=== PATIENT | male | born 1995 | race American Indian/Alaskan Native ===

== ENCOUNTER 2021-06-19 23:49 | Observation (INO) | payer MEDICAID ==
[2021-06-20] MEDS ORDERED: ASPIRIN 325 MG TAB PO ONE (02:39)
[2021-06-20] MEDS ORDERED: FAMOTIDINE 20 MG TAB PO ONE (02:39)
--- NOTE | 2021-06-20 02:41 | Event Note ---
ED Screening Note Date of service: 06/20/21 Time: 02:40 ED Screening Note: Patient is a 25-year-old -[place] male with a history of morbid obesity and GERD who presents to the ED with complaint of acute onset persistent intermittent substernal chest pain for the last 1 week, worse in the last 2 days. Patient states that the pain radiates to the mid posterior thoracic area. Patient states that the pain is intermittent, and persistent. Patient states that he has been taking his GERD medication omeprazole 40 mg daily. Patient denies fall, heavy lifting, cough, shortness of breath, nausea and vomiting, abdominal pain, dizziness, syncope, palpitations, neck pain, change in vision, lightheadedness or fever and chills. This initial assessment/diagnostic orders/clinical plan/treatment(s) is/are subject to change based on patients health status, clinical progression and re-assessment by fellow clinical providers in the ED. Further treatment and workup at subsequent clinical providers discretion. Patient/guardian urged not to elope from the ED as their condition may be serious if not clinically assessed and managed. Initial orders include: EKG, chest x-ray, CBC, CMP, troponin
--- NOTE | 2021-06-20 03:10 | XRay Report ---
CHEST PA AND LATERAL VIEWS INDICATION: chest pain. COMPARISON: None. FINDINGS: Support devices: None. Heart: Within normal limits. Lungs/Pleura: No acute pulmonary or pleural findings. IMPRESSION: 1. No acute findings. Signer Name: Sharad Sarabia MD Signed: 06/20/2021 3:05 AM Workstation Name: [id number]
[2021-06-20 03:25] LABS: Basophils # (Auto) 0.1 K/mm3 (0.0-0.1); Basophils % (Auto) 1.1 % (0.0-1.8); Eosinophils % (Auto) 0.3 % (0.0-4.3); Hematocrit 47.7 % (35.5-45.6); Hemoglobin 15.8 gm/dl (11.8-15.2); Lymphocytes # (Auto) 1.9 K/mm3 (1.2-5.4); Lymphocytes % (Auto) 24.7 % (13.4-35.0); Mean Corpuscular HGB Conc 33 % (32-34); Mean Corpuscular Volume 86 fl (84-94); Monocytes # (Auto) 0.5 K/mm3 (0.0-0.8); Platelet Count 192 K/mm3 (140-440); Red Blood Count 5.54 M/mm3 (3.65-5.03); Red Cell Distribution Width 15.3 % (13.2-15.2)
--- NOTE | 2021-06-20 03:58 | Emergency Department Report ---
ED Chest Pain HPI - General Chief Complaint: Chest Pain Stated Complaint: CHEST DISCOMFORT Time Seen by Provider: 06/20/21 03:46 Source: patient Mode of arrival: Ambulatory Limitations: No Limitations - History of Present Illness Initial Comments: 25-year-old male, history of obesity, GERD, presents to ED with chest pain x1 week. Patient states he has been having intermittent, pressure-like pain in the center of his chest for the last week. Patient states pain is worse with exertion, better with rest. He reports associated nausea. Tonight, patient states he felt as if he had worsening acid reflux, which made him come to the emergency room. Patient reports onset while laying in bed. He denies any tobacco, alcohol, drug use. Patient does report family history of CAD. Patient states he has never had a stress test previously. Patient reports he has received his COVID-19 vaccine. Patient seen and evaluated in acute waiting room area as there are no available rooms in the ED due to COVID-19 pandemic. MD Complaint: chest pain -: week(s) (1) Onset: during exertion Pain Location: substernal Pain Radiation: none Severity: moderate Quality: pressure Consistency: intermittent, now resolved Worsens With: exertion re: nausea. denies: vomting, diaphoresis, dyspnea Other Symptoms: denies: cough, fever, leg swelling - Related Data Previous Rx's Medication Instructions Recorded Last Taken Type Pantoprazole [Protonix TAB] 40 mg PO QDAY 30 Days #30 tablet 06/20/21 Unknown Rx Allergies Allergy/AdvReac Type Severity Reaction Status Date / Time No Known Allergies Allergy Verified 06/20/21 02:12 Heart Score - HEART Score History: Moderately suspicious EKG: Non-specific Age: < 45 Risk factors: 1-2 risk factors Troponin: < normal limit HEART Score: 3 - EKG Read Time Time EKG Completed: 02:48 EKG Read Time: 02:50 ED Review of Systems ROS: Stated complaint: CHEST DISCOMFORT Other details as noted in HPI Comment: All other systems reviewed and negative Constitutional: denies: chills, fever Respiratory: denies: cough, shortness of breath Cardiovascular: chest pain Gastrointestinal: nausea. denies: vomiting Musculoskeletal: other (Denies leg pain or swelling) ED Past Medical Hx - Past Medical History Previous Medical History?: No - Medications Home Medications: Home Medications Medication Instructions Recorded Confirmed Last Taken Type Pantoprazole [Protonix TAB] 40 mg PO QDAY 30 Days #30 tablet 06/20/21 Unknown Rx ED Physical Exam - General Limitations: No Limitations General appearance: alert, in no apparent distress - Head Head exam: Present: atraumatic, normocephalic - Eye Eye exam: Present: normal appearance, EOMI - ENT ENT exam: Present: mucous membranes moist - Neck Neck exam: Present: normal inspection - Respiratory Respiratory exam: Present: normal lung sounds bilaterally. Absent: respiratory distress - Cardiovascular Cardiovascular Exam: Present: regular rate, normal rhythm - GI/Abdominal GI/Abdominal exam: Present: soft. Absent: distended, tenderness - Extremities Exam Extremities exam: Present: normal inspection - Neurological Exam Neurological exam: Present: alert, oriented X3 - Psychiatric Psychiatric exam: Present: normal affect, normal mood - Skin Skin exam: Present: warm, dry, intact, normal color ED Course Vital Signs 06/20/21 06/20/21 06/20/21 02:13 10:18 10:29 Temperature 98.1 F Pulse Rate 74 Respiratory Rate Blood Pressure 119/59 118/75 Blood Pressure 134/86 [Right] O2 Sat by Pulse 99 Oximetry 06/20/21 06/20/21 06/20/21 10:31 10:33 10:35 Temperature Pulse Rate Respiratory Rate Blood Pressure 136/80 122/72 119/69 Blood Pressure [Right] O2 Sat by Pulse Oximetry 06/20/21 06/20/21 06/20/21 10:36 10:38 13:34 Temperature Pulse Rate Respiratory 21 Rate Blood Pressure 120/64 123/68 Blood Pressure [Right] O2 Sat by Pulse Oximetry 06/20/21 06/20/21 06/20/21 14:01 14:23 14:26 Temperature 98.4 F Pulse Rate 71 Respiratory 18 Rate Blood Pressure 124/77 Blood Pressure 111/55 [Right] O2 Sat by Pulse 100 96 100 Oximetry 06/20/21 06/20/21 14:31 15:01 Temperature Pulse Rate 58 L 62 Respiratory Rate Blood Pressure 111/55 110/65 Blood Pressure [Right] O2 Sat by Pulse 100 100 Oximetry ED Medical Decision Making - Lab Data Result diagrams: 06/20/21 02:48 06/20/21 02:48 - EKG Data -: EKG Interpreted by Fl EKG shows normal: sinus rhythm, intervals, QRS complexes Rate: normal - EKG Data Interpretation: pericarditis - Radiology Data Radiology results: report reviewed, image reviewed - Medical Decision Making 25-year-old male presents to ED with 1 week history of exertional chest pain. Patient is chest pain-free at this time. EKG shows some diffuse ST elevations that could suggest acute pericarditis, however, patient denies any sharp or pleuritic pain, or positional pain. First troponin is negative. Chest x-ray is unremarkable. Due to patient's family history and patient's obesity, will admit to hospitalist, Dr. Ritter, for further cardiac work-up. - Differential Diagnosis ACS, pericarditis, GERD Critical care attestation.: If time is entered above; I have spent that time in minutes in the direct care of this critically ill patient, excluding procedure time. ED Disposition Clinical Impression: Acute chest pain Disposition: 01 HOME / SELF CARE / HOMELESS Is pt being admited?: Yes Condition: Stable Time of Disposition: 04:23
[2021-06-20 04:14] LABS: Alanine Aminotransferase 27 units/L (7-56); Albumin 4.1 g/dL (3.9-5); BUN/Creatinine Ratio 8; Blood Urea Nitrogen 7 mg/dL (9-20); Calcium 8.8 mg/dL (8.4-10.2); Hemolysis Index 8
[2021-06-20] MEDS ORDERED: SODIUM CHLORIDE 0.9% 1000 ML 1,000 ML IV SCH (05:30)
[2021-06-20] MEDS ORDERED: traMADol 50 MG TAB PO PRN (05:30)
[2021-06-20] MEDS ORDERED: NITROGLYCERIN 0.4 MG TAB SUBL SL PRN (05:30)
[2021-06-20] MEDS ORDERED: MORPHINE 2 MG/1 ML INJ IV PRN (05:30)
[2021-06-20] MEDS ORDERED: ACETAMINOPHEN 325 MG TAB PO PRN (05:30)
--- NOTE | 2021-06-20 05:38 | History and Physical Report ---
History of Present Illness Date of examination: 06/20/21 Date of admission: 06/20/21 04:23 Chief complaint: Chest pain History of present illness: 25-year-old male with past medical history of GERD and obesity was brought to the emergency room because of chest pain which is pressure-like intermittent in the center of the chest since last week .patient states pain is worse with exertion, better with rest. He reports associated nausea. Tonight, patient states he felt as if he had worsening acid reflux, which made him come to the emergency room. Patient reports onset while laying in bed. He denies any tobacco, alcohol, drug use. Patient does report family history of CAD. Patient reports he has received his COVID-19 vaccine. In the emergency room initial cardiac enzyme is negative troponin is 0.010 Med rec need to be done. Advance discharge process is initiated Past History Past Medical History: GERD, other (Obesity) Medications and Allergies Allergies Allergy/AdvReac Type Severity Reaction Status Date / Time No Known Allergies Allergy Verified 06/20/21 02:12 Active Meds: Active Medications Acetaminophen (Acetaminophen 325 Mg Tab) 650 mg PO Q6H PRN PRN Reason: Pain, Mild (1-3) Aspirin (Aspirin 81 Mg Tab Chew) 81 mg PO QDAY JAD Atorvastatin Calcium (Atorvastatin 40 Mg Tab) 40 mg PO QHS JAD Heparin Sodium (Porcine) (Heparin 5,000 Unit/1 Ml Vial) 5,000 unit SUB-Q Q8HR JAD Sodium Chloride (Nacl 0.9% 1000 Ml) 1,000 mls @ 100 mls/hr IV DIRECT JAD Morphine Sulfate (Morphine 4 Mg/1 Ml Inj) 2 mg IV Q5MIN PRN PRN Reason: Chest Pain Nitroglycerin (Nitroglycerin 0.4 Mg Tab Subl) 0.4 mg SL Q5M PRN PRN Reason: Chest Pain Pantoprazole Sodium (Pantoprazole 40 Mg Tab) 40 mg PO QDAY JAD Sodium Chloride (Sodium Chloride 0.9% 10 Ml Flush Syringe) 10 ml IV PRN PRN PRN Reason: LINE FLUSH Tramadol HCl (Tramadol 50 Mg Tab) 50 mg PO Q6H PRN PRN Reason: Pain, Moderate (4-6) Review of Systems All systems: negative Cardiovascular: chest pain Gastrointestinal: heartburn Exam - Constitutional Vitals: Temp Pulse Resp BP Pulse Ox 98.1 F 74 134/86 99 06/20/21 02:13 06/20/21 02:13 06/20/21 02:13 06/20/21 02:13 General appearance: Present: no acute distress, well-nourished - EENT Eyes: Present: PERRL ENT: hearing intact, clear oral mucosa - Neck Neck: Present: supple, normal ROM - Respiratory Respiratory effort: normal Respiratory: bilateral: CTA - Cardiovascular Heart Sounds: Present: S1 & S2. Absent: rub, click - Extremities Extremities: pulses symmetrical, No edema Peripheral Pulses: within normal limits - Abdominal General gastrointestinal: Present: soft, non-tender, non-distended, normal bowel sounds Male genitourinary: Present: normal - Integumentary Integumentary: Present: clear, warm, dry - Musculoskeletal Musculoskeletal: gait normal, strength equal bilaterally - Psychiatric Psychiatric: appropriate mood/affect, intact judgment & insight - Neurologic Neurologic: CNII-XII intact, moves all extremities HEART Score - HEART Score EKG: Non-specific Age: < 45 Risk factors: 1-2 risk factors Troponin: Troponin T < 0.010 ng/mL (0.00-0.029) 06/20/21 02:48 Troponin: < normal limit Results - Labs CBC & Chem 7: 06/20/21 02:48 06/20/21 02:48 Labs: Laboratory Last Values WBC 7.6 K/mm3 (4.5-11.0) 06/20/21 02:48 RBC 5.54 M/mm3 (3.65-5.03) H 06/20/21 02:48 Hgb 15.8 gm/dl (11.8-15.2) H 06/20/21 02:48 Hct 47.7 % (35.5-45.6) H 06/20/21 02:48 MCV 86 fl (84-94) 06/20/21 02:48 MCH 29 pg (28-32) 06/20/21 02:48 MCHC 33 % (32-34) 06/20/21 02:48 RDW 15.3 % (13.2-15.2) H 06/20/21 02:48 Plt Count 192 K/mm3 (140-440) 06/20/21 02:48 Lymph % (Auto) 24.7 % (13.4-35.0) 06/20/21 02:48 Cotton % (Auto) 7.0 % (0.0-7.3) 06/20/21 02:48 Eos % (Auto) 0.3 % (0.0-4.3) 06/20/21 02:48 Baso % (Auto) 1.1 % (0.0-1.8) 06/20/21 02:48 Lymph # (Auto) 1.9 K/mm3 (1.2-5.4) 06/20/21 02:48 Cotton # (Auto) 0.5 K/mm3 (0.0-0.8) 06/20/21 02:48 Eos # (Auto) 0.0 K/mm3 (0.0-0.4) 06/20/21 02:48 Baso # (Auto) 0.1 K/mm3 (0.0-0.1) 06/20/21 02:48 Seg Neutrophils % 66.9 % (40.0-70.0) 06/20/21 02:48 Seg Neutrophils # 5.0 K/mm3 (1.8-7.7) 06/20/21 02:48 Sodium 141 mmol/L (137-145) 06/20/21 02:48 Potassium 4.0 mmol/L (3.6-5.0) 06/20/21 02:48 Chloride 102.8 mmol/L (98-107) 06/20/21 02:48 Carbon Dioxide 29 mmol/L (22-30) 06/20/21 02:48 Anion Gap 13 mmol/L 06/20/21 02:48 BUN 7 mg/dL (9-20) L 06/20/21 02:48 Creatinine 0.9 mg/dL (0.8-1.3) 06/20/21 02:48 Estimated GFR > 60 ml/min 06/20/21 02:48 BUN/Creatinine Ratio 8 % 06/20/21 02:48 Glucose 106 mg/dL (75-100) H 06/20/21 02:48 Calcium 8.8 mg/dL (8.4-10.2) 06/20/21 02:48 Total Bilirubin 0.40 mg/dL (0.1-1.2) 06/20/21 02:48 AST 19 units/L (5-40) 06/20/21 02:48 ALT 27 units/L (7-56) 06/20/21 02:48 Alkaline Phosphatase 97 units/L (35-129) 06/20/21 02:48 Troponin T < 0.010 ng/mL (0.00-0.029) 06/20/21 02:48 Total Protein 7.6 g/dL (6.3-8.2) 06/20/21 02:48 Albumin 4.1 g/dL (3.9-5) 06/20/21 02:48 Albumin/Globulin Ratio 1.2 % 06/20/21 02:48 - Imaging and Cardiology Chest x-ray: report reviewed Assessment and Plan VTE prophylaxis?: Chemical Plan of care discussed with patient/family: Yes - Patient Problems (1) Acute chest pain Current Visit: Yes Status: Acute Plan to address problem: Admit the patient to the medical telemetry. Put the patient on chest pain pathway. Aspirin 81 mg p.o. daily. Lipitor 40 mg p.o. daily. Nitroglycerin as needed. We do the serial cardiac enzyme. We also do a nuclear stress test Alisson scan. Consult cardiology if needed. (2) GERD (gastroesophageal reflux disease) Current Visit: Yes Status: Acute Plan to address problem: Protonix 40 mg p.o. daily. We will monitor the patient closely. We continue the home medication (3) Obesity Current Visit: Yes Status: Acute Plan to address problem: We counseled the patient regarding weight reduction. (4) DVT prophylaxis Current Visit: Yes Status: Acute Plan to address problem: Heparin 5000 units subcu every 8 hours for DVT prophylaxis. Protonix 40 mg p.o. daily for GI prophylaxis. Patient is a full code
[2021-06-20] MEDS: HEPARIN 5,000 UNIT/1 ML VIAL SUB-Q SCH ×2 (06:48→13:39)
[2021-06-20] MEDS ORDERED: REGADENOSON 0.4 MG/5 ML INJ IV ONE (06:49)
[2021-06-20] MEDS ORDERED: PANTOPRAZOLE 40 MG TAB PO SCH (10:00)
--- NOTE | 2021-06-20 12:53 | Discharge Summary ---
Providers - Providers Date of Admission: 06/20/21 04:23 Date of discharge: 06/20/21 Attending physician: SHANKAR MILLER MD 06/20/21 Consult to Cardiac Rehabilitation [CONS] Routine Reason For Exam: Phase I Primary care physician: [employer] Hospitalization Reason for admission: chest pain Condition: Stable Hospital course: History of present illness: 25-year-old male with past medical history of GERD and obesity was brought to the emergency room because of chest pain which is pressure-like intermittent in the center of the chest since last week .patient states pain is worse with exertion, better with rest. He reports associated nausea. Tonight, patient states he felt as if he had worsening acid reflux, which made him come to the emergency room. Patient reports onset while laying in bed. He denies any tobacco, alcohol, drug use. Patient does report family history of CAD. Patient reports he has received his COVID-19 vaccine. In the emergency room initial cardiac enzyme is negative troponin is 0.010 Med rec need to be done. Advance discharge process is initiated Hospital course to date: Patient was admitted for chest pain. Serial cardiac enzymes were negative. By the end of hospital course chest pain had resolved. Nuclear stress Lexiscan was completed and was negative for ischemia. Patient will be discharged home with instructions to follow-up with primary care doctor. He was encouraged to start Protonix 40 mg daily and to lose weight as this will help with his overall health. Disposition: 01 HOME / SELF CARE / HOMELESS Final Discharge Diagnosis (Prints w/discharge instructions): Gastroesophageal reflux disease Time spent for discharge: 25 - Discharge Diagnoses (1) Acute chest pain Status: Acute (2) GERD (gastroesophageal reflux disease) Status: Acute (3) Obesity Status: Acute Core Measure Documentation - Palliative Care Palliative Care/ Comfort Measures: Not Applicable - Core Measures Any of the following diagnoses?: none Exam - Physical Exam Narrative exam: General appearance: Present: no acute distress, well-nourished - EENT Eyes: Present: PERRL ENT: hearing intact, clear oral mucosa - Neck Neck: Present: supple, normal ROM - Respiratory Respiratory effort: normal Respiratory: bilateral: CTA - Cardiovascular Heart Sounds: Present: S1 & S2. Absent: rub, click - Extremities Extremities: pulses symmetrical, No edema Peripheral Pulses: within normal limits - Abdominal General gastrointestinal: Present: soft, non-tender, non-distended, normal bowel sounds Male genitourinary: Present: normal - Integumentary Integumentary: Present: clear, warm, dry - Musculoskeletal Musculoskeletal: gait normal, strength equal bilaterally - Psychiatric Psychiatric: appropriate mood/affect, intact judgment & insight - Neurologic Neurologic: CNII-XII intact, moves all extremities - Constitutional Vitals: Temp Pulse Resp BP Pulse Ox 98.1 F 74 123/68 99 06/20/21 02:13 06/20/21 02:13 06/20/21 10:38 06/20/21 02:13 Plan Activity: no restrictions Weight Bearing Status: Weight Bear as Tolerated Diet: low fat, low cholesterol, low salt, low carbohydrate Follow up with: PRIMARY CARE, [Primary Care Provider] - 7 Days
[2021-06-20 15:21] VITALS: BP 110/65
[2021-06-21] MEDS ORDERED: ASPIRIN 81 MG TAB CHEW PO SCH (10:00)
--- NOTE | 2021-06-21 10:59 | Electrocardiograph Report ---
[facility] Test Date: 2021-06-20 Test Time: 02:18:18 Pat Name: SOTO FREY Department: Room: [place] [address] Gender: M Silo Worker: ENMA : 1995 Requested By: MARC NAVARRO Order Number: [id number] Reading MD: Raul Cevallos Measurements Intervals [place] Rate: 65 P: 72 [place]: 162 QRS: 28 QRSD: 92 T: 32 QT: 415 QTc: 430 Interpretive Statements Sinus arrhythmia ST elevation suggests acute pericarditis No previous ECG available for comparison Electronically Signed On 06-21-2021 10:59:18 EDT by Raul Cevallos
== END 2021-06-20 15:50 | disposition home or self-care (01) ==
LOC: ED 23:49 → 4A 06-20 04:23
PROVIDERS: ADMIT Hospitalist; ATTEND Internal Medicine
DX: R07.89 Other chest pain (principal); K21.9 Gastro-esophageal reflux disease without esophagitis; E66.9 Obesity, unspecified; Z68.43 Body mass index [BMI] 50.0-59.9, adult; Z79.82 Long term (current) use of aspirin
CPT/HCPCS: 36415; 71046; 78452; 80053; 84484; 85025; 93005; 93017; 96372; 99285; A9502; G0378; J1644; J2785